=== PATIENT | male | born 1950 | race Caucasian/White ===

== ENCOUNTER 2016-05-10 14:35 | Emergency (ER) | payer OTHER ==
--- NOTE | 2016-05-10 14:52 | ER Document Report ---
ED Medical Screen (RME) - General Stated Complaint: LEFT KNEE PAIN Mode of Arrival: Ambulatory Information source: Patient Notes: Patient complains of left knee pain with some swelling x 4 days. 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 Patient is not on any blood thinning medications although is concerned about DVT this time. I have greeted and performed a rapid initial assessment of this patient. A comprehensive ED assessment and evaluation of the patient, analysis of test results and completion of the medical decision making process will be conducted by additional ED providers. TRAVEL OUTSIDE OF THE [place] IN LAST 30 DAYS: No - Related Data Allergies/Adverse Reactions: No Known Allergies Allergy (Verified 05/10/16 14:50) Past Medical History - Past Medical History Cardiac Medical History: Reports: Hx Hypertension Denies: Hx Coronary Artery Disease, Hx Heart Attack Pulmonary Medical History: Denies: Hx Asthma, Hx Bronchitis, Hx COPD, Hx Pneumonia Neurological Medical History: Denies: Hx Cerebrovascular Accident, Hx Seizures Endocrine Medical History: Reports: Hx Diabetes Mellitus Type 2 Musculoskeltal Medical History: Denies Hx Arthritis - Immunizations Hx Diphtheria, Pertussis, Tetanus Vaccination: Yes Physical Exam - Vital signs Vitals: Temp Pulse Resp BP Pulse Ox 97.9 F 83 18 151/74 H 97 05/10/16 14:41 05/10/16 14:41 05/10/16 14:41 05/10/16 14:41 05/10/16 14:41 - Extremities General lower extremity: Tender - Left lower extremity Course - Vital Signs Vital signs: Temp Pulse Resp BP Pulse Ox 97.9 F 83 18 151/74 H 97 05/10/16 14:41 05/10/16 14:41 05/10/16 14:41 05/10/16 14:41 05/10/16 14:41
[2016-05-10 16:51] LABS: ABSOLUTE BASOPHILS # (AUTO) 0.1 10^3/uL (0.0-0.2); ABSOLUTE EOSINOPHILS # (AUTO) 0.2 10^3/uL (0.0-0.6); ABSOLUTE LYMPHOCYTES (AUTO) 2.7 10^3/uL (0.5-4.7); ABSOLUTE MONOCYTES (AUTO) 0.8 10^3/uL (0.1-1.4); ABSOLUTE NEUT (AUTO) 5.2 10^3/uL (1.7-8.2); BASOPHILS % (AUTO) 0.8 % (0-2); EOSINOPHILS % (AUTO) 2.3 % (0-6); HEMATOCRIT 46.6 % (37.9-51.0); HEMOGLOBIN 15.6 g/dL (13.5-17.0); HGB HCT DIFFERENCE 0.2; LYMPHOCYTES % (AUTO) 29.8 % (13-45); MEAN CORPUSCULAR HEMOGLOBIN 29.7 pg (27.0-33.4); MEAN CORPUSCULAR HGB CONC 33.6 g/dL (32.0-36.0); MEAN CORPUSCULAR VOLUME 88 fl (80-97); MONOCYTES % (AUTO) 8.7 % (3-13); RED BLOOD COUNT 5.27 10^6/uL (4.35-5.55); RED CELL DISTRIBUTION WIDTH 14.4 % (11.5-14.0); SEGMENTED NEUTROPHILS % (AUTO) 58.4 % (42-78); WHITE BLOOD COUNT 8.9 10^3/uL (4.0-10.5)
[2016-05-10 16:56] LABS: PARTIAL THROMBOPLASTIN TIME 25.4 SEC (23.5-35.8)
[2016-05-10 17:06] LABS: ALANINE AMINOTRANSFERASE 32 U/L (21-72); ALBUMIN 3.4 g/dL (3.5-5.0); ALKALINE PHOSPHATASE 107 U/L (38-126); ANION GAP 9 (5-19); ASPARTATE AMINO TRANSFERASE 20 U/L (17-59); BILIRUBIN,TOTAL 0.5 mg/dL (0.2-1.3); BLOOD UREA NITROGEN 19 mg/dL (7-20); CALCIUM 9.1 mg/dL (8.4-10.2); CARBON DIOXIDE 30 mmol/L (22-30); CHLORIDE 103 mmol/L (98-107); CREATININE RESULT 0.93 mg/dL (0.52-1.25); GLUCOSE 96 mg/dL (75-110); POTASSIUM 4.6 mmol/L (3.6-5.0); SODIUM 141.6 mmol/L (137-145); TOTAL PROTEIN 6.7 g/dL (6.3-8.2)
--- NOTE | 2016-05-10 18:34 | ER Document Report ---
ED Extremity Problem, Lower - General Chief Complaint: Leg Swelling Stated Complaint: LEFT KNEE PAIN Mode of Arrival: Ambulatory Information source: Patient TRAVEL OUTSIDE OF THE [place] IN LAST 30 DAYS: No - HPI Patient complains to provider of: Pain Location: Knee - MEDIAL LEFT Occurred: Other - 3 DAYS Where: Home Onset/Duration: Gradual Quality of pain: Burning, Dull Severity: Mild Recent injury: Possibly - ? INSECT OR SPIDER BITE Associated symptoms: denies: Chest pain, Chills, Fever, Painful ambulation, Short of breath, Sweaty, Unable to bear weight, Weak Exacerbated by: Other - PALPATION Relieved by: Nothing - Related Data Allergies/Adverse Reactions: No Known Allergies Allergy (Verified 05/10/16 14:50) Past Medical History - General Information source: Patient - Social History Smoking Status: Unknown if Ever Smoked Chew tobacco use (# tins/day): Yes Frequency of alcohol use: None Drug Abuse: None Lives with: Spouse/Significant other Family History: Reviewed & Not Pertinent Patient has suicidal ideation: No Patient has homicidal ideation: No - Past Medical History Cardiac Medical History: Reports: Hx DVT, Hx Hypertension Denies: Hx Coronary Artery Disease, Hx Heart Attack Pulmonary Medical History: Denies: Hx Asthma, Hx Bronchitis, Hx COPD, Hx Pneumonia Neurological Medical History: Denies: Hx Cerebrovascular Accident, Hx Seizures Endocrine Medical History: Reports: Hx Diabetes Mellitus Type 2 Renal/ Medical History: Denies: Hx Peritoneal Dialysis GI Medical History: Reports: None Musculoskeltal Medical History: Reports None, Denies Hx Arthritis Psychiatric Medical History: Reports: None Surgical Hx: Negative - Immunizations Hx Diphtheria, Pertussis, Tetanus Vaccination: Yes Review of Systems - Review of Systems Constitutional: No symptoms reported. denies: Chills, Fever EENT: No symptoms reported Cardiovascular: No symptoms reported Respiratory: No symptoms reported. denies: Short of breath Gastrointestinal: No symptoms reported Genitourinary: No symptoms reported Musculoskeletal: See HPI Skin: See HPI Neurological/Psychological: No symptoms reported Physical Exam - Vital signs Vitals: Temp Pulse Resp BP Pulse Ox 97.9 F 83 18 151/74 H 97 05/10/16 14:41 05/10/16 14:41 05/10/16 14:41 05/10/16 14:41 05/10/16 14:41 Interpretation: Hypertensive - General General appearance: Appears well, Alert In distress: None - HEENT Head: Normocephalic Eyes: Normal Ears: Normal Nasal: Normal Mouth/Lips: Normal Mucous membranes: Normal - Respiratory Respiratory status: No respiratory distress Breath sounds: Normal - Cardiovascular Rhythm: Regular. No: Tachycardia Heart sounds: Normal auscultation Murmur: No - Abdominal Inspection: Obese - Back Back: Normal - Extremities General upper extremity: Normal inspection General lower extremity: No: Normal inspection - REDNES L. KNEE (SEE "SKIN" BELOW) Knee: Tender - ON MEDIAL SURFACE ONLY. No: Drawer's test instability, Instability, Joint effusion, Laxity with valgus stress, Laxity with varus stress , Pain with ROM, Unable to bear weight - Neurological Neuro grossly intact: Yes Cognition: Normal Orientation: AAOx4 - Psychological Associated symptoms: Normal affect, Normal mood - Skin Skin Temperature: Warm Skin Moisture: Dry Skin Color: Normal Skin Turgor: Elastic Skin irregularity: Erythema - MEDIAL SURFACE L. KNEE, MILDLY RED, TENDER, AND WARM. NO DISCRETE LESION, PUNCTURE, ETC. Course - Vital Signs Vital signs: Temp Pulse Resp BP Pulse Ox 97.9 F 83 18 151/74 H 97 05/10/16 14:41 05/10/16 14:41 05/10/16 14:41 05/10/16 14:41 05/10/16 14:41 - Laboratory Result Diagrams: 05/10/16 16:33 05/10/16 16:33 Laboratory results interpreted by me: 05/10/16 05/10/16 16:33 16:33 RDW 14.4 H Albumin 3.4 L Discharge - Discharge Clinical Impression: Cellulitis Qualifiers: Site of cellulitis: extremity Site of cellulitis of extremity: lower extremity Laterality: left Qualified Code(s): L03.116 - Cellulitis of left lower limb Condition: Stable Disposition: HOME, SELF-CARE Instructions: Cellulitis ([facility]), Clindamycin ([facility]), Elevation & Warmth ([facility]), Ibuprofen (General) ([facility]) Additional Instructions: TAKE CLINDAMYCIN DIRECTED, BEGINNING TONIGHT. KEEP LEFT LEG ELEVATED MUCH POSSIBLE. FOLLOW UP WITH YOUR PRIMARY CARE PROVIDER. RETURN TO E.R. FOR RE-EVALUATION IF YOU GET WORSE IN ANY WAY, ANY TIME. Prescriptions: Clindamycin HCl [Cleocin 150 mg Capsule] 300 mg PO Q6 #56 capsule Ibuprofen [Motrin 800 mg Tablet] 800 mg PO Q8 PRN #20 tablet PRN Reason: For Pain Referrals: REINALDO HUGHES NP [Primary Care Provider] - Follow up as needed
[2016-05-10 19:19] VITALS: BP 136/73
== END 2016-05-10 18:47 | disposition home or self-care (01) ==
LOC: ER 14:35
DX: L03.116 Cellulitis of left lower limb (principal); M79.89 Other specified soft tissue disorders; M25.562 Pain in left knee
CPT/HCPCS: 36415; 80053; 85025; 85610; 85730; 93971; 99284

== ENCOUNTER → 2016-05-25 | Outpatient (CLI) | payer OTHER | LOC: OD 12:32 | PROVIDERS: ATTEND Nurse Practitioner | DX: M25.551 Pain in right hip (principal); G89.29 Other chronic pain; M16.11 Unilateral primary osteoarthritis, right hip | CPT/HCPCS: 72170 ==

== ENCOUNTER 2016-10-21 20:02 | Emergency (ER) | payer MEDICARE, OTHER ==
[2016-10-21] MEDS ORDERED: ASPIRIN 81 MG TABLET, CHEWABLE PO ONE (20:55)
--- NOTE | 2016-10-21 20:56 | ER Document Report ---
ED Cardiac - General TRAVEL OUTSIDE OF THE [place] IN LAST 30 DAYS: No <EFRAIN LINDER - Last Filed: 10/22/16 02:59> <ARNAV ADNRE - Last Filed: 10/22/16 13:28> - General Chief Complaint: Chest Pain Stated Complaint: CHEST PAIN Time Seen by Provider: 10/21/16 20:49 Notes: Patient is a 66-year-old male that comes emergency department for chief complaint of chest pain and shortness of breath, he states yesterday he felt better than today, he had 2 episodes earlier today that lasted for a couple minutes where he had sharp pains in the mid to lower chest on both sides and he states he felt like he was gasping for breath until it resolves. He states if he stands he immediately feels very short of breath and has to lie down again. He denies vomiting, abdominal pain, flank pain, fever, cough, lower extremity swelling. He denies any personal or family history of cardiac disease. Past medical history of hypertension, obesity, former blood clot but is not on a blood thinner. He chews tobacco, denies ever smoking. (EFRAIN LINDER) - Related Data Allergies/Adverse Reactions: No Known Allergies Allergy (Verified 05/10/16 14:50) Home Medications: Current Home Medications No Home Medications 10/22/16 [History] Past Medical History - General Information source: Patient - Social History Smoking Status: Never Smoker Chew tobacco use (# tins/day): Yes Frequency of alcohol use: None Drug Abuse: None Lives with: Family Family History: Reviewed & Not Pertinent Patient has suicidal ideation: No Patient has homicidal ideation: No - Past Medical History Cardiac Medical History: Reports: Hx DVT, Hx Hypertension Denies: Hx Coronary Artery Disease, Hx Heart Attack Pulmonary Medical History: Denies: Hx Asthma, Hx Bronchitis, Hx COPD, Hx Pneumonia Neurological Medical History: Denies: Hx Cerebrovascular Accident, Hx Seizures Endocrine Medical History: Reports: Hx Diabetes Mellitus Type 2 Renal/ Medical History: Denies: Hx Peritoneal Dialysis Musculoskeltal Medical History: Denies Hx Arthritis - Immunizations Hx Diphtheria, Pertussis, Tetanus Vaccination: Yes <EFRAIN LINDER - Last Filed: 10/22/16 02:59> Review of Systems - Review of Systems Constitutional: No symptoms reported EENT: No symptoms reported Cardiovascular: See HPI Respiratory: See HPI Gastrointestinal: No symptoms reported Genitourinary: No symptoms reported Male Genitourinary: No symptoms reported Musculoskeletal: No symptoms reported Skin: No symptoms reported Hematologic/Lymphatic: No symptoms reported Neurological/Psychological: No symptoms reported <EFRAIN LINDER - Last Filed: 10/22/16 02:59> Physical Exam - Vital signs Interpretation: Normal - General General appearance: Other - patient appears mildly uncomfortable - HEENT Head: Normocephalic, Atraumatic Eyes: Normal Pupils: PERRL - Respiratory Respiratory status: No respiratory distress. No: Respiratory distress, Labored Chest status: Nontender Breath sounds: Normal. No: Decreased air movement, Nonproductive cough, Wheezing Chest palpation: Normal - Cardiovascular Rhythm: Regular, Tachycardia Heart sounds: Normal auscultation, S1 appreciated, S2 appreciated Murmur: No - Abdominal Inspection: Normal Distension: No distension Bowel sounds: Normal Tenderness: Nontender. No: Tender, Matute's sign, Guarding Organomegaly: No organomegaly - Back Back: Normal, Nontender - Extremities General upper extremity: Normal inspection, Nontender, Normal color, Normal ROM , Normal temperature General lower extremity: Other - Mild lower extremity discoloration, no overt erythema or abnormal heat, no overt edema, distal neurovascular exam intact. - Neurological Neuro grossly intact: Yes Cognition: Normal Orientation: AAOx4 Ronaldo Coma Scale Eye Opening: Spontaneous Rawlings Coma Scale Verbal: Oriented Ronaldo Coma Scale Motor: Obeys Commands Rawlings Coma Scale Total: 15 Speech: Normal Motor strength normal: LUE, RUE, LLE, RLE Sensory: Normal - Psychological Associated symptoms: Normal affect, Normal mood - Skin Skin Temperature: Warm Skin Moisture: Dry Skin Color: Normal <EFRAIN LINDER - Last Filed: 10/22/16 02:59> Course - Laboratory Result Diagrams: 10/21/16 21:18 10/21/16 21:18 <EFRAIN LINDER - Last Filed: 10/22/16 02:59> - Laboratory Result Diagrams: 10/21/16 21:18 10/22/16 08:58 <ARNAV ANDRE - Last Filed: 10/22/16 13:28> - Re-evaluation Re-evalutation: Patient tachycardic, reporting chest pain, appears mildly uncomfortable. Concern for pulmonary embolism. CBC shows mild leukocytosis which is nonspecific, chemistry unremarkable, troponin is elevated at 0.14. EKG showing sinus tachycardia, possible S1Q3T3. CTA was performed, shows massive pulmonary emboli both proximally and distally. Ordering heparin drip. 10/21/16 22:[address] Holguin, Construction Coordinator at [facility]. He states that there is not good data indicating TPA will help this patient, at at the age of 66 the risk of intracranial is about double, recommends that he does not usually perform or recommend this unless patient strongly prefers the medication. Recommends heparin drip at this time. I did discuss with patient and his son at length and in detail. After discussion the decision was made to avoid TPA at this time with normal blood pressure and maintaining good oxygenation on nasal cannula. Patient and son state agreement and preference of this course. 22:[address] Liu and Dr. Szymanski, recommend transfer because of lack of ICU beds in addition to lack of interventional therapy for massive PE with signs of right heart strain. 22:[address] Holguin again, recommends I speak to hospitalist. Spoke with Dr. Thomas, they will accept patient for transfer. Patient and son state agreement with this plan of action. 10/22/16 02:59 Patient is resting comfortably on the new hospital bed provided for him because of being informed of bed delay to [facility]. He denies any current symptoms, maintaining good blood pressure and oxygenation on nc. (EFRAIN LINDER) 10/22/16 07:38 pt care transferred to [place] at the bedise, vitals stable, no complaints of pain, oxygen on 4 lpm 95% pulse ox. Pt daily meds and breakfast ordered. Will call [facility] transfer center re: bed status, and also [facility] hospitalist's to re evaluate as to whether the pt can stay at [facility] on heparin drip. 10/22/16 08:23 call to [facility] about bed status. may be late this evening, may not get today according to them at this time. Consult Dr. Brody for reevaluation Wednesday at [facility] and she recommended getting a stat echocardiogram to check for right heart strain, repeat the troponin and basic metabolic panel. She also wants a temperature recorded in the computer. 10/22/16 08:34 10/22/16 11:[address] brody again concerning the right ventricular,thrombus, she is calling [facility] to see if they would change their mind about IC TPA in light of this new data. pt vitals OK, family at bedside. 10/22/16 12:27 Dr. Brody spoke with Dr. Maldonado who is a cardiac surgeon who will accept the patient to cardiac CV ICU room 219 for the intracardiac intervention for the right ventricular clot. They are sending helicopter to be flown to [facility]. Dr. Rick Aware and will sign the new emtala form. 10/22/16 12:42 pt signed new emtala for transfer with the new information. Dr. rick will see the pt prior to leaving via air [facility] 10/22/16 13:27 pt on stretcher for air transport, extra copy of CD given to the family. Vitals stable. repeat ptt 73. 10/22/16 13:28 (ARNAV ANDRE) - Vital Signs Vital signs: Temp Pulse Resp BP Pulse Ox 97.6 F 72 18 128/61 H 95 10/22/16 12:30 10/22/16 12:30 10/22/16 12:30 10/22/16 12:30 10/22/16 12:30 - Laboratory Laboratory results interpreted by me: 10/21/16 10/21/16 10/22/16 21:18 21:18 05:14 WBC 13.4 H RDW 14.3 H Seg Neutrophils % 78.6 H Absolute Neutrophils 10.6 H APTT 121.4 H D Carbon Dioxide 21 L BUN 21 H Glucose 203 H Alkaline Phosphatase 138 H Creatine Kinase 42 L 10/22/16 10/22/16 08:58 12:07 WBC RDW Seg Neutrophils % Absolute Neutrophils APTT 73.8 H Carbon Dioxide BUN Glucose 140 H Alkaline Phosphatase 128 H Creatine Kinase Critical Care Note - Critical Care Note Total time excluding time spent on procedures (mins): 40 - pulmonary emboli, elevated troponin, hypoxia, tachycardia <EFRAIN LINDER - Last Filed: 10/22/16 02:59> <ARANV ANDRE - Last Filed: 10/22/16 13:28> - Critical Care Note Comments: Please allow 40 minutes of critical care time for evaluation and treatment of patient with massive pulmonary emboli requiring mulitple re-evaluations, consultation with interist and multiple hospitalists. Treatment with oxygen and heparin drip. Discussion of treatment options with patient and family. Transfer to tertiary facility. (EFRAIN LINDER) Discharge <EFRAIN LINDER - Last Filed: 10/22/16 02:59> <ARNAV ANDRE - Last Filed: 10/22/16 13:28> - Discharge Clinical Impression: Shortness of breath Chest pain Qualifiers: Chest pain type: unspecified Qualified Code(s): R07.9 - Chest pain, unspecified Pulmonary emboli Qualifiers: Pulmonary embolism type: other Chronicity: acute Acute cor pulmonale presence: with acute cor pulmonale Qualified Code(s): I26.09 - Other pulmonary embolism with acute cor pulmonale Condition: Fair Disposition: [facility] Referrals: REINALDO HUGHES NP [Primary Care Provider] - Follow up as needed
--- NOTE | 2016-10-21 21:12 | RADIOLOGY REPORT (SQ) ---
EXAM DESCRIPTION: CHEST SINGLE VIEW COMPLETED DATE/TIME: 10/21/2016 9:02 pm REASON FOR STUDY: chest pain, shortness of breath COMPARISON: None. EXAM PARAMETERS: NUMBER OF VIEWS: One view. TECHNIQUE: Single frontal radiographic view of the chest acquired. RADIATION DOSE: NA LIMITATIONS: None. FINDINGS: LUNGS AND PLEURA: No opacities, masses or pneumothorax. No pleural effusion. MEDIASTINUM AND HILAR STRUCTURES: No masses. Contour normal. HEART AND VASCULAR STRUCTURES: Heart normal in size. Normal vasculature. BONES: No acute findings. HARDWARE: None in the chest. OTHER: No other significant finding. IMPRESSION: NO ACUTE RADIOGRAPHIC FINDING IN THE CHEST. TECHNICAL DOCUMENTATION: JOB ID: [id number]
[2016-10-21 21:34] LABS: ABSOLUTE BASOPHILS # (AUTO) 0.1 10^3/uL (0.0-0.2); ABSOLUTE EOSINOPHILS # (AUTO) 0.1 10^3/uL (0.0-0.6); ABSOLUTE LYMPHOCYTES (AUTO) 1.9 10^3/uL (0.5-4.7); ABSOLUTE MONOCYTES (AUTO) 0.8 10^3/uL (0.1-1.4); ABSOLUTE NEUT (AUTO) 10.6 10^3/uL (1.7-8.2); BASOPHILS % (AUTO) 0.7 % (0-2); EOSINOPHILS % (AUTO) 0.8 % (0-6); HEMATOCRIT 48.2 % (37.9-51.0); HGB HCT DIFFERENCE -0.2; MEAN CORPUSCULAR HEMOGLOBIN 29.6 pg (27.0-33.4); MEAN CORPUSCULAR HGB CONC 33.1 g/dL (32.0-36.0); MEAN CORPUSCULAR VOLUME 90 fl (80-97); MONOCYTES % (AUTO) 5.9 % (3-13); RED BLOOD COUNT 5.39 10^6/uL (4.35-5.55); RED CELL DISTRIBUTION WIDTH 14.3 % (11.5-14.0); SEGMENTED NEUTROPHILS % (AUTO) 78.6 % (42-78); WHITE BLOOD COUNT 13.4 10^3/uL (4.0-10.5)
[2016-10-21 21:53] LABS: ALANINE AMINOTRANSFERASE 40 U/L (21-72); ALKALINE PHOSPHATASE 138 U/L (38-126); ANION GAP 16 (5-19); ASPARTATE AMINO TRANSFERASE 28 U/L (17-59); BILIRUBIN,DIRECT 0.4 mg/dL (0.0-0.4); BILIRUBIN,TOTAL 0.9 mg/dL (0.2-1.3); BLOOD UREA NITROGEN 21 mg/dL (7-20); CALCIUM 8.9 mg/dL (8.4-10.2); CARBON DIOXIDE 21 mmol/L (22-30); CHLORIDE 102 mmol/L (98-107); CREATINE KINASE 42 U/L (55-170); CREATININE RESULT 1.05 mg/dL (0.52-1.25); GLUCOSE 203 mg/dL (75-110); LIPASE 54.5 U/L (23-300); POTASSIUM 4.4 mmol/L (3.6-5.0); SODIUM 138.9 mmol/L (137-145); TOTAL PROTEIN 7.1 g/dL (6.3-8.2)
--- NOTE | 2016-10-21 22:31 | RADIOLOGY REPORT (SQ) ---
EXAM DESCRIPTION: CTA CHEST COMPLETED DATE/TIME: 10/21/2016 10:19 pm REASON FOR STUDY: chest pain, SOB, tachycardia, hx of blood clot COMPARISON: None. TECHNIQUE: CT scan of the chest performed using helical scanning technique with dynamic intravenous contrast injection. Images reviewed with lung, soft tissue and bone windows. Reconstructed coronal and sagittal MPR images reviewed. Additional 3 dimensional post-processing performed to develop Maximal Intensity Projection images (IL P). All images stored on PACS. All CT scanners at this facility use dose modulation, iterative reconstruction, and/or weight based d osing when appropriate to reduce radiation dose to as low as reasonably achievable (ALARA). [facility]: Dose Right [facility]: CareDose [facility]: Dose Right [facility]: Teradose 4D [facility]: Planning Media CONTRAST TYPE AND DOSE: contrast/concentration: Isovue 370.00 mg/ml; Total Contrast Delivered: 86.0 ml; Total Saline Delivered: 55.0 ml RENAL FUNCTION: Creatinine 1.05 RADIATION DOSE: Up-to-date CT equipment and radiation dose reduction techniques were employed. CTDIv ol: 33.7 mGy. DLP: 1214 mGy-cm. . LIMITATIONS: None. FINDINGS: LUNGS AND PLEURA: No masses, infiltrates, pneumothorax. No pleural effusions, calcificati ons. AORTA AND GREAT VESSELS: No aneurysm or dissection. HEART: No pericardial effusion. PULMONARY ARTERIES: Massive bilateral proximal and distal pulmonary emboli. HILAR AND MEDIASTINAL STRUCTURES: No identified masses or abnormal nodes. HARDWARE: None in the chest. UPPER ABDOMEN: Large hepatic cysts. THYROID AND OTHER SOFT TISSUES: No masses. No adenopathy. BONES: No acute or significant finding. 3D MIPS: Confirm above findings. OTHER: No other significant finding. IMPRESSION: Massive proximal and distal pulmonary emboli. COMMENT: Pertinent findings on the imaging study reported as a CRITICAL RESULT to EFRAIN MCCARTHY at 22:24 on 10/21/2016. Category of Critical Result: Pulmonary emboli. TECHNICAL DOCUMENTATION: JOB ID: [id number] Quality ID # [id number]: Final reports with documentation of one or more dose reduction techniques (e.g., Au tomated exposure control, adjustment of the mA and/or kV according to patient size, use of iterative reconstruction technique) 2010 [employer]- All Rights Reserved
[2016-10-21 22:33] LABS: PARTIAL THROMBOPLASTIN TIME 29.6 SEC (23.5-35.8); PROTHROMBIN TIME 14.2 SEC (11.4-15.4)
[2016-10-21] MEDS ORDERED: HEPARIN SODIUM,PORCINE/D5W 250 ML IV PRN (22:39)
[2016-10-21] MEDS ORDERED: HEPARIN SOD (PORCINE) 1,000 UNIT/ML 10 ML VIAL IV PRN (22:39)
[2016-10-21] MEDS ORDERED: HEPARIN SOD (PORCINE) 1,000 UNIT/ML 10 ML VIAL IV ONE (22:39)
[2016-10-22 05:34] LABS: PROTHROMBIN TIME 15.2 SEC (11.4-15.4)
[2016-10-22 05:49] LABS: PARTIAL THROMBOPLASTIN TIME 121.4 SEC (23.5-35.8)
[2016-10-22] MEDS ORDERED: HYDROCHLOROTHIAZIDE 25 MG TABLET PO ONE (07:07)
[2016-10-22] MEDS ORDERED: ATORVASTATIN CALCIUM 40 MG TABLET PO ONE (07:08)
[2016-10-22] MEDS ORDERED: LISINOPRIL 10 MG TABLET PO ONE (07:18)
--- NOTE | 2016-10-22 08:13 | EKG REPORT ---
SEVERITY:- ABNORMAL ECG - SINUS TACHYCARDIA INFERIOR INFARCT, AGE INDETERMINATE : Confirmed by: Solo Zhang MD 22-Oct-2016 08:12:33
[2016-10-22] MEDS ORDERED: METFORMIN HCL 500 MG TABLET PO SCH (10:00)
[2016-10-22 10:05] LABS: ALANINE AMINOTRANSFERASE 32 U/L (21-72); ALBUMIN 3.6 g/dL (3.5-5.0); ALKALINE PHOSPHATASE 128 U/L (38-126); ANION GAP 12 (5-19); ASPARTATE AMINO TRANSFERASE 23 U/L (17-59); BILIRUBIN,DIRECT 0.3 mg/dL (0.0-0.4); BLOOD UREA NITROGEN 19 mg/dL (7-20); CALCIUM 8.8 mg/dL (8.4-10.2); CARBON DIOXIDE 23 mmol/L (22-30); CHLORIDE 105 mmol/L (98-107); CREATININE RESULT 0.88 mg/dL (0.52-1.25); GLUCOSE 140 mg/dL (75-110); POTASSIUM 4.3 mmol/L (3.6-5.0); SODIUM 139.5 mmol/L (137-145); TOTAL PROTEIN 6.7 g/dL (6.3-8.2)
--- NOTE | 2016-10-22 11:04 | XCELERA REPORT ---
[address] [address] Transthoracic Echocardiogram Report Name: JACOB MATTA Age: 66 yrs Gender: Male : 1950 Patient Status: Emergency Patient Location: ER Study Date: 10/22/2016 08:59 AM Height: 73 in Weight: 326 lb BSA: 2.6 m2 Procedure: A complete two-dimensional transthoracic echocardiogram was performed (2D, M-mode, spectral and color flow Doppler). The study was technically difficult with many images being suboptimal in quality. Reason For Study: eval for right ventricular strain, due to PE Ordering Physician: ARNAV ANDRE Performed By: Ren Ramos Interpretation Summary Small Mobile echodensity noted in RV most consistent with thrombus. Left ventricular systolic function is low normal. There is mild concentric left ventricular hypertrophy. The left ventricle is grossly normal size. Doppler measurements suggest impaired left ventricular relaxation, which is associated with grade I/IV or mild diastolic dysfunction Wall motion cannot be accurately commented on, but no definite regional wall motion abnormalities noted. The right ventricle is moderately dilated. The right ventricle appears to be hypertrophied The right ventricular systolic function is mildly reduced. The right atrium is mild to moderately dilated. The left atrial size is normal. Interarterial septum not well visualized and not well dopplered. Cannot comment on ASD/PFO presence. There is no mitral valve stenosis. There is a mild amount of mitral regurgitation There is no aortic valve stenosis No aortic regurgitation is present. There is a trace to mild amount of tricuspid regurgitation There is mild pulmonary hypertension by echo Right ventricular systolic pressure is estimated to be elevated at 30- 40mmHg. The aortic root is not well visualized but is probably normal size. The inferior vena cava appeared dilated and decreased < 50% with respiration (RAP 15-20 mmHg) There is no pericardial effusion. MMode/2D Measurements \T\ Calculations RVDd: 3.4 cm LVIDd: 4.7 cm FS: 23.8 % Ao root diam: 3.5 cm IVSd: 1.6 cm LVIDs: 3.6 cm EDV(Teich): 103.2 ml LVPWd: 1.6 cm ESV(Teich): 54.3 ml Ao root area: 9.8 cm2 EF(Teich): 47.4 % LA dimension: 3.5 cm Doppler Measurements \T\ Calculations MV E max terra: MV P1/2t max terra: Ao V2 max: LV V1 max P.3 cm/sec 55.4 cm/sec 135.1 cm/sec 4.9 mmHg MV A max terra: MV P1/2t: 48.9 msec Ao max PG: LV V1 max: 84.9 cm/sec 7.3 mmHg 110.6 cm/sec MV E/A: 0.70 MVA(P1/2t): 4.5 cm2 MV dec slope: 332.3 cm/sec2 PA V2 max: TR max terra: RAP systole: 64.2 cm/sec 229.9 cm/sec 10.0 mmHg PA max PG: TR max P.4 mmHg 1.6 mmHg RVSP(TR): 31.4 mmHg Left Ventricle The left ventricle is grossly normal size. There is mild concentric left ventricular hypertrophy. Left ventricular systolic function is low normal. Doppler measurements suggest impaired left ventricular relaxation, which is associated with grade I/IV or mild diastolic dysfunction. Wall motion cannot be accurately commented on, but no definite regional wall motion abnormalities noted. Right Ventricle The right ventricle is moderately dilated. The right ventricle appears to be hypertrophied. The right ventricular systolic function is mildly reduced. Atria The right atrium is mild to moderately dilated. The left atrial size is normal. Interarterial septum not well visualized and not well dopplered. Cannot comment on ASD/PFO presence. Mitral Valve The mitral valve is grossly normal. There is no mitral valve stenosis. There is a mild amount of mitral regurgitation. Aortic Valve The aortic valve is grossly normal. There is no aortic valve stenosis. No aortic regurgitation is present. Tricuspid Valve The tricuspid valve is not well visualized, but is grossly normal. There is no tricuspid stenosis. There is a trace to mild amount of tricuspid regurgitation. There is mild pulmonary hypertension by echo. Right ventricular systolic pressure is estimated to be elevated at 30-40mmHg. Pulmonic Valve The pulmonic valve is not well visualized. Great Vessels The aortic root is not well visualized but is probably normal size. The inferior vena cava appeared dilated and decreased < 50% with respiration (RAP 15-20 mmHg). Effusions There is no pericardial effusion. Incidental Findings Small Mobile echodensity noted in RV most consistent with thrombus. : ARNAV ANDRE > Deven Haines
[2016-10-22] MEDS ORDERED: NORMAL SALINE 1000 ML 1,000 ML IV ONE ×2 (11:53→11:57)
--- NOTE | 2016-10-22 12:30 | Progress Note ---
Provider Note Provider Note: Spoke with SOFYA Hurley. Upon review of patient case felt he would be better served with catheter directed lysis. Discussed case with Dr. Maldonado of [facility] who agreed to accept patient to cardiac ICU. I did not phyiscally evaluate this patient and only facilitated his transfer to a larger center for ongoing care. Agree with heparin ggt while waiting.
[2016-10-22 13:40] VITALS: BP 125/89
== END 2016-10-22 13:32 | disposition short-term general hospital (02) ==
LOC: ER 20:02
DX: I26.09 Other pulmonary embolism with acute cor pulmonale (principal); R74.8 Abnormal levels of other serum enzymes; R09.02 Hypoxemia; R07.9 Chest pain, unspecified; D72.829 Elevated white blood cell count, unspecified; R06.02 Shortness of breath; R00.0 Tachycardia, unspecified; I10 Essential (primary) hypertension; E11.9 Type 2 diabetes mellitus without complications; Z72.0 Tobacco use; Z86.718 Personal history of other venous thrombosis and embolism
CPT/HCPCS: 93005; 99291; 96374; 36415; 82550; 83690; 85025; 85610; 85730; 80053; 84484; 93306; 71010; 71275; 93010; J1644 ×2; A9270 ×2; J7030

== ENCOUNTER 2017-12-01 16:02 | Inpatient (IN) | payer MEDICARE ==
[2017-12-01] MEDS ORDERED: PIPERACILLIN/TAZOBACTAM 3.375 GM VIAL IV ONE ×2 (16:34→17:32)
[2017-12-01] MEDS ORDERED: VANCOMYCIN HCL INJ 1000 MG VIAL IV ONE ×2 (16:34→18:52)
--- NOTE | 2017-12-01 16:35 | ER Document Report ---
ED Medical Screen (RME) - General Chief Complaint: Puncture Wound Stated Complaint: LEFT LOWER LEG PUNCTURE WOUND Time Seen by Provider: 12/01/17 16:20 Mode of Arrival: Ambulatory Information source: Patient Notes: Patient presents with a 2 day history of left lower extremity puncture wound. He said that the wound has been getting worse. He is also on a blood thinner. Patient has diabetes and he is on the Metformin. I have greeted and performed a rapid initial assessment of this patient. A comprehensive ED assessment and evaluation of the patient, analysis of test results and completion of the medical decision making process will be conducted by additional ED providers. TRAVEL OUTSIDE OF THE [place] IN LAST 30 DAYS: No - Related Data Allergies/Adverse Reactions: No Known Allergies Allergy (Verified 12/01/17 16:05) Past Medical History - Social History Frequency of alcohol use: None Drug Abuse: None - Past Medical History Cardiac Medical History: Reports: Hx DVT, Hx Hypertension Denies: Hx Coronary Artery Disease, Hx Heart Attack Pulmonary Medical History: Denies: Hx Asthma, Hx Bronchitis, Hx COPD, Hx Pneumonia Neurological Medical History: Denies: Hx Cerebrovascular Accident, Hx Seizures Endocrine Medical History: Reports: Hx Diabetes Mellitus Type 2 Renal/ Medical History: Denies: Hx Peritoneal Dialysis Musculoskeltal Medical History: Denies Hx Arthritis - Immunizations Hx Diphtheria, Pertussis, Tetanus Vaccination: Yes Physical Exam - Vital signs Vitals: Temp Pulse Resp BP Pulse Ox 98.1 F 103 H 18 172/87 H 97 12/01/17 16:09 12/01/17 16:09 12/01/17 16:12/01/17 16:09 12/01/17 16:09 Course - Vital Signs Vital signs: Temp Pulse Resp BP Pulse Ox 98.1 F 103 H 18 172/87 H 97 12/01/17 16:09 12/01/17 16:09 12/01/17 16:12/01/17 16:12/01/17 16:09 Doctor's Discharge - Discharge Referrals: REINALDO HUGHES NP [Primary Care Provider] - Follow up as needed
[2017-12-01 17:20] LABS: ABSOLUTE BASOPHILS # (AUTO) 0.1 10^3/uL (0.0-0.2); ABSOLUTE EOSINOPHILS # (AUTO) 0.1 10^3/uL (0.0-0.6); ABSOLUTE LYMPHOCYTES (AUTO) 3.1 10^3/uL (0.5-4.7); ABSOLUTE MONOCYTES (AUTO) 0.8 10^3/uL (0.1-1.4); BASOPHILS % (AUTO) 0.7 % (0-2); EOSINOPHILS % (AUTO) 0.8 % (0-6); HEMOGLOBIN 15.3 g/dL (13.5-17.0); LYMPHOCYTES % (AUTO) 27.8 % (13-45); MEAN CORPUSCULAR HEMOGLOBIN 29.6 pg (27.0-33.4); MEAN CORPUSCULAR HGB CONC 33.3 g/dL (32.0-36.0); MEAN CORPUSCULAR VOLUME 89 fl (80-97); MONOCYTES % (AUTO) 7.3 % (3-13); PLATELET COUNT 219 10^3/uL (150-450); RED BLOOD COUNT 5.17 10^6/uL (4.35-5.55); RED CELL DISTRIBUTION WIDTH 14.3 % (11.5-14.0); SEGMENTED NEUTROPHILS % (AUTO) 63.4 % (42-78); TOTAL CELLS COUNTED % (AUTO) 100 %
[2017-12-01 17:32] LABS: INTERNATIONAL RATION (INR) 1.57; PARTIAL THROMBOPLASTIN TIME 27.2 SEC (23.5-35.8); PROTHROMBIN TIME 19.6 SEC (11.4-15.4)
[2017-12-01 17:37] LABS: ALANINE AMINOTRANSFERASE 23 U/L (21-72); ALKALINE PHOSPHATASE 104 U/L (38-126); ANION GAP 10 (5-19); ASPARTATE AMINO TRANSFERASE 17 U/L (17-59); BILIRUBIN,DIRECT 0.3 mg/dL (0.0-0.4); BILIRUBIN,TOTAL 0.7 mg/dL (0.2-1.3); BLOOD UREA NITROGEN 21 mg/dL (7-20); CALCIUM 8.8 mg/dL (8.4-10.2); CARBON DIOXIDE 26 mmol/L (22-30); CHLORIDE 106 mmol/L (98-107); GLUCOSE 114 mg/dL (75-110); POTASSIUM 4.4 mmol/L (3.6-5.0); SODIUM 142.2 mmol/L (137-145); TOTAL PROTEIN 7.3 g/dL (6.3-8.2)
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
[2017-12-01] MEDS ORDERED: KETOROLAC TROMETHAMINE INJ/PF 30 MG/1 ML SDV IV PRN (19:44)
[2017-12-01] MEDS ORDERED: HYDRALAZINE HCL INJ/PF 20 MG/1 ML SDV IV PRN (19:44)
[2017-12-01] MEDS ORDERED: MAG HYDROX/AL HYDROX/SIMETH SUSP 30 ML UDCUP PO PRN (21:12)
[2017-12-01] MEDS ORDERED: ACETAMINOPHEN 325 MG TABLET PO PRN (21:12)
[2017-12-01] MEDS ORDERED: MAGNESIUM HYDROXIDE SUSP 30 ML UDCUP PO PRN (21:12)
[2017-12-01] MEDS ORDERED: WARFARIN SODIUM 4 MG TABLET PO SCH ×2 (22:00)
[2017-12-01] MEDS ORDERED: (PENDING PHARMACY ID) (Lisinopril [Prinivil 2.5 Mg Tablet] 2.5 MG) PO SCH (22:00)
[2017-12-01 23:04] LABS: AMORPHOUS SEDIMENT,URINE TRACE /HPF; BILIRUBIN,URINE NEGATIVE (NEGATIVE); COLOR,URINE YELLOW; GLUCOSE, URINE NEGATIVE (NEGATIVE); KETONES,URINE NEGATIVE (NEGATIVE); LEUKOCYTE ESTERASE,URINE NEGATIVE (NEGATIVE); NITRITE,URINE NEGATIVE (NEGATIVE); PROTEIN,URINE NEGATIVE (NEGATIVE); URINE SPECIFIC GRAVITY 1.026; UROBILINOGEN,URINE NEGATIVE mg/dL (<2.0)
[2017-12-01 23:05] LABS: APPEARANCE,URINE CLOUDY
[2017-12-01] MEDS: HEPARIN SOD (PORCINE) 5,000 UNIT/ML 1 ML SYRINGE SUBCUT SCH (23:16)
[2017-12-01] MEDS: WARFARIN SODIUM 5 MG TABLET PO SCH (23:16)
[2017-12-01] MEDS: LISINOPRIL 5 MG TABLET PO SCH (23:17)
[2017-12-02] MEDS ORDERED: DEXTROSE 50%-WATER 25 GM/50 ML DISP.SYRIN IV PRN ×2 (00:21)
[2017-12-02] MEDS ORDERED: GLUCAGON,HUMAN RECOMB 1 MG INJ IM PRN (00:21)
[2017-12-02] MEDS ORDERED: INSULIN LISPRO 100 UNIT/ML 3 ML VIAL SUBCUT PRN (00:21)
[2017-12-02] MEDS ORDERED: DEXTROSE 40% GEL 15 GM TUBE PO PRN ×2 (00:21)
[2017-12-02] MEDS: HEPARIN SOD (PORCINE) 5,000 UNIT/ML 1 ML SYRINGE SUBCUT SCH ×3 (05:52→22:33)
[2017-12-02 06:32] LABS: ABSOLUTE BASOPHILS # (AUTO) 0.1 10^3/uL (0.0-0.2); ABSOLUTE EOSINOPHILS # (AUTO) 0.2 10^3/uL (0.0-0.6); ABSOLUTE LYMPHOCYTES (AUTO) 2.8 10^3/uL (0.5-4.7); ABSOLUTE MONOCYTES (AUTO) 0.7 10^3/uL (0.1-1.4); ABSOLUTE NEUT (AUTO) 4.9 10^3/uL (1.7-8.2); BASOPHILS % (AUTO) 0.9 % (0-2); HEMATOCRIT 41.4 % (37.9-51.0); HEMOGLOBIN 14.1 g/dL (13.5-17.0); LYMPHOCYTES % (AUTO) 32.9 % (13-45); MEAN CORPUSCULAR HGB CONC 34.1 g/dL (32.0-36.0); MEAN CORPUSCULAR VOLUME 88 fl (80-97); PLATELET COUNT 187 10^3/uL (150-450); RED BLOOD COUNT 4.71 10^6/uL (4.35-5.55); RED CELL DISTRIBUTION WIDTH 14.5 % (11.5-14.0); SEGMENTED NEUTROPHILS % (AUTO) 56.2 % (42-78); TOTAL CELLS COUNTED % (AUTO) 100 %; WHITE BLOOD COUNT 8.6 10^3/uL (4.0-10.5)
[2017-12-02 06:49] LABS: INTERNATIONAL RATION (INR) 1.52; PROTHROMBIN TIME 19.1 SEC (11.4-15.4)
[2017-12-02 06:53] LABS: ANION GAP 6 (5-19); BLOOD UREA NITROGEN 20 mg/dL (7-20); CALCIUM 8.5 mg/dL (8.4-10.2); CARBON DIOXIDE 27 mmol/L (22-30); CHLORIDE 107 mmol/L (98-107); GLUCOSE 108 mg/dL (75-110); POTASSIUM 4.2 mmol/L (3.6-5.0); SODIUM 140.3 mmol/L (137-145)
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
[2017-12-02] MEDS ORDERED: VANCOMYCIN HCL 0 MG in DEXTROSE 5%-WATER 250 ML IV NR (08:30)
[2017-12-02] MEDS ORDERED: PIPERACILLIN SODIUM/TAZOBACTAM 4.5 GM in NORMAL SALINE 100 ML IV SCH (09:00)
--- NOTE | 2017-12-02 09:37 | PDOC PROGRESS REPORT ---
Subjective Progress Note for:: 12/02/17 Subjective:: 67-year-old white male with left lower extremity cellulitis. Pain decreased afebrile white count normalizing. INR 1.5 to on increased dose of Coumadin Reason For Visit: CELLULITIS DIABETES Physical Exam Vital Signs: Temp Pulse Resp BP Pulse Ox 98.2 F 64 15 110/59 L 94 12/02/17 07:24 12/02/17 07:24 12/02/17 07:24 12/02/17 07:24 12/02/17 07:24 Intake & Output 12/01/17 12/02/17 12/03/17 06:59 06:59 06:59 Weight 148.4 kg 148.4 kg General appearance: PRESENT: no acute distress, well-developed, well-nourished Head exam: PRESENT: atraumatic, normocephalic Eye exam: PRESENT: conjunctival injection, EOMI Neck exam: ABSENT: carotid bruit, JVD, lymphadenopathy, thyromegaly Respiratory exam: PRESENT: clear to auscultation aniket. ABSENT: rales, rhonchi, wheezes Cardiovascular exam: PRESENT: RRR. ABSENT: diastolic murmur, rubs, systolic murmur Vascular exam: PRESENT: normal capillary refill, pallor GI/Abdominal exam: PRESENT: normal bowel sounds, soft. ABSENT: distended, guarding, mass, organolmegaly, rebound, tenderness Extremities exam: PRESENT: +1 edema. ABSENT: calf tenderness Skin exam: PRESENT: other Results Laboratory Results: 12/02/17 05:33 12/02/17 05:33 12/01/17 12/01/17 12/02/17 21:07 21:16 05:33 WBC 8.6 RBC 4.71 Hgb 14.1 Hct 41.4 MCV 88 MCH 30.0 MCHC 34.1 RDW 14.5 H Plt Count 187 Seg Neutrophils % 56.2 Lymphocytes % 32.9 Monocytes % 8.0 Eosinophils % 2.0 Basophils % 0.9 Absolute Neutrophils 4.9 Absolute Lymphocytes 2.8 Absolute Monocytes 0.7 Absolute Eosinophils 0.2 Absolute Basophils 0.1 Sodium Potassium Chloride Carbon Dioxide Anion Gap BUN Creatinine Est GFR ( Amer) Est GFR (Non-Af Amer) Glucose Lactic Acid 2.5 H Calcium Urine Color YELLOW Urine Appearance CLOUDY Urine pH 5.0 Ur Specific [place] 1.026 Urine Protein NEGATIVE Urine Glucose (UA) NEGATIVE Urine Ketones NEGATIVE Urine Blood NEGATIVE Urine Nitrite NEGATIVE Ur Leukocyte Esterase NEGATIVE Urine WBC (Auto) 15 Urine RBC (Auto) 2 12/02/17 05:33 WBC RBC Hgb Hct MCV MCH MCHC RDW Plt Count Seg Neutrophils % Lymphocytes % Monocytes % Eosinophils % Basophils % Absolute Neutrophils Absolute Lymphocytes Absolute Monocytes Absolute Eosinophils Absolute Basophils Sodium 140.3 Potassium 4.2 Chloride 107 Carbon Dioxide 27 Anion Gap 6 BUN 20 Creatinine 0.83 Est GFR ( Amer) > 60 Est GFR (Non-Af Amer) > 60 Glucose 108 Lactic Acid Calcium 8.5 Urine Color Urine Appearance Urine pH Ur Specific [place] Urine Protein Urine Glucose (UA) Urine Ketones Urine Blood Urine Nitrite Ur Leukocyte Esterase Urine WBC (Auto) Urine RBC (Auto) Assessment & Plan - Diagnosis (1) Left leg cellulitis Is this a current diagnosis for this admission?: Yes Plan: Continue vancomycin and Zosyn for 48-72 hours transition to p.o. antibiotics planned treatment 10-14 days (2) Sepsis Qualifiers: Sepsis type: sepsis due to unspecified organism Qualified Code(s): A41.9 - Sepsis, unspecified organism Is this a current diagnosis for this admission?: Yes Plan: Resolved (3) Diabetes Qualifiers: Diabetes mellitus type: type 2 Diabetes mellitus care home insulin use: without care home use Diabetes mellitus complication status: without complication Qualified Code(s): E11.9 - Type 2 diabetes mellitus without complications Is this a current diagnosis for this admission?: Yes Plan: Patient on metformin at home hemoglobin A1c 6.4 indicating good glycemic control. Continue sliding scale for the present. (4) Chronic anticoagulation Is this a current diagnosis for this admission?: Yes Plan: Continue Coumadin 10 mg nightly. INR daily until patient achieves goal of 2-3. Continue subcutaneous heparin until patient is therapeutically anticoagulated (5) Morbid obesity with BMI of 40.0-44.9, adult Is this a current diagnosis for this admission?: Yes Plan: Weight reduction stressed. - Time Time Spent with patient: 35 or more minutes Anticipated discharge: Home Within: within 48 hours
[2017-12-02] MEDS: METFORMIN HCL 500 MG TABLET PO SCH ×2 (10:43→16:39)
[2017-12-02] MEDS: PIPERACILLIN SODIUM/TAZOBACTAM 2.25 GM in NORMAL SALINE 50 ML IV SCH ×2 (10:43→17:52)
[2017-12-02] MEDS: DOCUSATE SODIUM 100 MG CAPSULE PO SCH ×2 (10:43→17:52)
[2017-12-02] MEDS: VANCOMYCIN HCL 1,000 MG in DEXTROSE 5%-WATER 250 ML IV SCH ×2 (14:32→22:34)
[2017-12-02] MEDS: WARFARIN SODIUM 5 MG TABLET PO SCH (22:32)
[2017-12-02] MEDS: LISINOPRIL 5 MG TABLET PO SCH (22:33)
[2017-12-03] MEDS: PIPERACILLIN SODIUM/TAZOBACTAM 2.25 GM in NORMAL SALINE 50 ML IV SCH ×3 (02:53→17:07)
[2017-12-03] MEDS: HEPARIN SOD (PORCINE) 5,000 UNIT/ML 1 ML SYRINGE SUBCUT SCH ×3 (05:54→22:35)
[2017-12-03] MEDS: VANCOMYCIN HCL 1,000 MG in DEXTROSE 5%-WATER 250 ML IV SCH ×3 (06:04→22:34)
[2017-12-03 06:27] LABS: PROTHROMBIN TIME 20.8 SEC (11.4-15.4)
[2017-12-03 06:34] LABS: APPEARANCE,URINE CLEAR; BILIRUBIN,URINE NEGATIVE (NEGATIVE); COLOR,URINE YELLOW; GLUCOSE, URINE NEGATIVE (NEGATIVE); KETONES,URINE NEGATIVE (NEGATIVE); LEUKOCYTE ESTERASE,URINE NEGATIVE (NEGATIVE); NITRITE,URINE NEGATIVE (NEGATIVE); PROTEIN,URINE NEGATIVE (NEGATIVE); URINE SPECIFIC GRAVITY 1.011; UROBILINOGEN,URINE NEGATIVE mg/dL (<2.0)
[2017-12-03] MEDS: METFORMIN HCL 500 MG TABLET PO SCH ×2 (08:09→17:07)
--- NOTE | 2017-12-03 09:37 | PDOC PROGRESS REPORT ---
Subjective Progress Note for:: 12/03/17 Subjective:: Leg less tender less swollen erythema regressing.No new complaints. Reason For Visit: CELLULITIS DIABETES Physical Exam Vital Signs: Temp Pulse Resp BP Pulse Ox 97.7 F 58 L 16 112/61 96 12/03/17 08:13 12/03/17 08:13 12/03/17 08:13 12/03/17 08:13 12/03/17 08:13 Intake & Output 12/02/17 12/03/17 12/04/17 06:59 06:59 06:59 Intake Total 1389 250 Output Total 1325 Balance 64 250 Weight 148.4 kg 151.1 kg General appearance: PRESENT: no acute distress, obese, well-developed, well- nourished Neck exam: ABSENT: carotid bruit, JVD, lymphadenopathy, thyromegaly Respiratory exam: PRESENT: clear to auscultation aniket. ABSENT: rales, rhonchi, wheezes Cardiovascular exam: PRESENT: RRR. ABSENT: diastolic murmur, rubs, systolic murmur GI/Abdominal exam: PRESENT: normal bowel sounds, soft. ABSENT: distended, guarding, mass, organolmegaly, rebound, tenderness Extremities exam: PRESENT: tenderness - Left lower extremity Skin exam: PRESENT: skin tears - Improved erythema, warm Results Laboratory Results: 12/02/17 05:33 12/02/17 05:33 12/02/17 12/03/17 11:00 05:40 Urine Color YELLOW Urine Appearance CLEAR Urine pH 5.0 Ur Specific [place] 1.011 Urine Protein NEGATIVE Urine Glucose (UA) NEGATIVE Urine Ketones NEGATIVE Urine Blood NEGATIVE Urine Nitrite NEGATIVE Ur Leukocyte Esterase NEGATIVE Urine WBC (Auto) 0 Urine RBC (Auto) 0 Stool Occult Blood NEGATIVE Assessment & Plan - Diagnosis (1) Left leg cellulitis Is this a current diagnosis for this admission?: Yes Plan: Continue Vanco Zosyn today transitioned to p.o. clindamycin in a.m. anticipate discharge when Roads are clear from [place].. (2) Sepsis Qualifiers: Sepsis type: sepsis due to unspecified organism Qualified Code(s): A41.9 - Sepsis, unspecified organism Is this a current diagnosis for this admission?: Yes Plan: Resolved (3) Diabetes Qualifiers: Diabetes mellitus type: type 2 Diabetes mellitus correction insulin use: without watermaster use Diabetes mellitus complication status: without complication Qualified Code(s): E11.9 - Type 2 diabetes mellitus without complications Is this a current diagnosis for this admission?: Yes Plan: Patient on metformin at home hemoglobin A1c 6.4 indicating good glycemic control. Continue sliding scale for the present. (4) Chronic anticoagulation Is this a current diagnosis for this admission?: Yes Plan: INR 1.70 continue Coumadin at 10 mg daily INR in a.m. (5) Morbid obesity with BMI of 40.0-44.9, adult Is this a current diagnosis for this admission?: Yes Plan: Weight reduction stressed.
[2017-12-03] MEDS: DOCUSATE SODIUM 100 MG CAPSULE PO SCH ×2 (10:05→17:12)
[2017-12-03] MEDS: WARFARIN SODIUM 5 MG TABLET PO SCH (22:35)
[2017-12-03] MEDS: LISINOPRIL 5 MG TABLET PO SCH (22:35)
[2017-12-04] MEDS: PIPERACILLIN SODIUM/TAZOBACTAM 2.25 GM in NORMAL SALINE 50 ML IV SCH (02:38)
[2017-12-04] MEDS: HEPARIN SOD (PORCINE) 5,000 UNIT/ML 1 ML SYRINGE SUBCUT SCH (05:38)
[2017-12-04] MEDS: VANCOMYCIN HCL 1,000 MG in DEXTROSE 5%-WATER 250 ML IV SCH (05:38)
[2017-12-04 06:35] LABS: INTERNATIONAL RATION (INR) 1.85; PROTHROMBIN TIME 22.2 SEC (11.4-15.4)
[2017-12-04] MEDS: METFORMIN HCL 500 MG TABLET PO SCH (07:41)
[2017-12-04] MEDS: DOCUSATE SODIUM 100 MG CAPSULE PO SCH (09:15)
[2017-12-04] MEDS ORDERED: CLINDAMYCIN HCL 150 MG CAPSULE PO SCH (12:00)
[2017-12-04 12:51] VITALS: BP 112/61
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
== END 2017-12-04 13:39 | disposition home or self-care (01) | DRG 872 ==
LOC: ER 16:02 → EH 19:39 → 4S 21:55
PROVIDERS: ADMIT Internal Medicine; ATTEND Internal Medicine
DX: A41.9 Sepsis, unspecified organism (principal); L03.116 Cellulitis of left lower limb; Z68.41 Body mass index [BMI] 40.0-44.9, adult; L03.114 Cellulitis of left upper limb; I10 Essential (primary) hypertension; E66.01 Morbid (severe) obesity due to excess calories; E11.51 Type 2 diabetes mellitus with diabetic peripheral angiopathy without gangrene; S81.832A Puncture wound without foreign body, left lower leg, initial encounter; Z86.711 Personal history of pulmonary embolism; I87.2 Venous insufficiency (chronic) (peripheral); R79.1 Abnormal coagulation profile; Z79.01 Long term (current) use of anticoagulants; W26.8XXA Contact with other sharp object(s), not elsewhere classified, initial encounter
CPT/HCPCS: 36415; 80048; 80053; 80202; 81001; 82272; 82962; 83605; 85025; 85610; 85730; 87040; 99284; J1644; J2543; J3370; J3490; J7060

== ENCOUNTER 2017-12-25 10:31 | Emergency (ER) | payer MEDICARE ==
[2017-12-25] MEDS ORDERED: LIDOCAINE 1% INJ-PF (10 MG/ML) 30 ML SDV INJ ONE (10:47)
[2017-12-25 11:09] LABS: INTERNATIONAL RATION (INR) 2.11; PROTHROMBIN TIME 24.7 SEC (11.4-15.4)
--- NOTE | 2017-12-25 11:40 | RADIOLOGY REPORT (SQ) ---
EXAM DESCRIPTION: TIBIA FIBULA LEFT COMPLETED DATE/TIME: 12/25/2017 11:19 am REASON FOR STUDY: Laceration with weed Sanjiv COMPARISON: None. NUMBER OF VIEWS: Two views. TECHNIQUE: Two radiographic images acquired of the left tibia and fibula to include the knee and ank le in at least one projection. LIMITATIONS: None. FINDINGS: MINERALIZATION: Normal. BONES: No acute fracture or dislocation. No worrisome bone lesions. Main ankle joints are approxima odalys. A small Achilles tendon enthesophyte. No erosions. SOFT TISSUES: Soft tissue defect overlying the medial distal tibia with an overlying bandage. No rad iopaque foreign body. No subcutaneous gas. Scattered vascular calcifications. OTHER: No other significant finding. IMPRESSION: 1. No acute fracture or dislocation. 2. Small soft tissue defect overlying the distal medial tibia. No radiopaque foreign body. TECHNICAL DOCUMENTATION: JOB ID: [id number] charity: [employer]- All Rights Reserved Reading location - IP/workstation name: [email or web address]
[2017-12-25 11:50] VITALS: BP 140/93
--- NOTE | 2017-12-25 12:13 | ER Document Report ---
ED Extremity Problem, Lower - General Chief Complaint: Laceration Stated Complaint: LEG INJURY Time Seen by Provider: 12/25/17 10:45 Notes: Patient was using a weed Sanjiv and accidentally hit the distal inner aspect of his left lower leg causing a rather long laceration. It appears to be through the subcutaneous fat level. No other injuries. Patient was just an inpatient at this hospital for an infected lower left leg, on the outer aspect where he had a couple of infected lesions. He was treated as an inpatient with IV antibiotics before being discharged home on clindamycin which she has now finished. The area of current injury, does not appear to be in the same area of the leg as where he had the 2 infected spots. Additionally, patient is on Coumadin because he has had pulmonary emboli in the past. And discharged a week or so ago TRAVEL OUTSIDE OF THE [place] IN LAST 30 DAYS: No - Related Data Allergies/Adverse Reactions: No Known Allergies Allergy (Verified 12/25/17 10:32) Past Medical History - Social History Smoking Status: Former Smoker Family History: Reviewed & Not Pertinent Patient has suicidal ideation: No Patient has homicidal ideation: No - Past Medical History Cardiac Medical History: Reports: Hx DVT, Hx Hypertension Endocrine Medical History: Reports: Hx Diabetes Mellitus Type 2 Musculoskeletal Medical History: Denies Hx Arthritis - Immunizations Hx Diphtheria, Pertussis, Tetanus Vaccination: Yes Hx Pneumococcal Vaccination: 11/01/16 Review of Systems - Review of Systems Notes: REVIEW OF SYSTEMS: CONSTITUTIONAL : Denies fever. EENT: Denies eye, ear, nose or mouth or throat pain or other symptoms. CARDIOVASCULAR: Denies chest pain. RESPIRATORY: Denies cough, chest congestion, or shortness of breath. GASTROINTESTINAL: Denies abdominal pain or nausea, vomiting, or diarrhea. GENITOURINARY: Denies difficulty or painful urinating, urinary frequency, blood in urine. MUSCULOSKELETAL: Denies back or neck pain. Denies joint pain or swelling. SKIN: See HPI. NEUROLOGICAL: Denies LOC or altered mental status. Denies headache. Denies sensory loss or motor deficits. ALL OTHER SYSTEMS REVIEWED AND NEGATIVE. Physical Exam - Vital signs Vitals: Temp Pulse Resp BP Pulse Ox 98.1 F 102 H 16 140/93 H 95 12/25/17 11:49 12/25/17 11:49 12/25/17 11:49 12/25/17 11:49 12/25/17 11:49 - Notes Notes: PHYSICAL EXAMINATION: GENERAL: Well-appearing, in no acute distress. HEAD: Atraumatic, normocephalic. NECK: Normal range of motion, supple. LUNGS: Breath sounds clear and equal bilaterally. HEART: Regular rate and rhythm without murmurs. ABDOMEN: Soft, nontender. No guarding or rebound. No masses. BACK: No tenderness throughout entire back. EXTREMITIES: Normal range of motion without pain. Healed lesions on the outer aspect of the left ankle. These are the infected areas that he was admitted to the hospital to treat. Patient has a 9 cm laceration of the inner aspect of the left distal lower leg this is. It extends deeper into the subcutaneous tissue and the more distal posterior aspect, but none of it appears to involve muscle. No dirt or debris noted. NEUROLOGICAL: Normal speech, difficult to ambulate because of pain. Normal sensory, motor, and reflex exams. Awake, alert, and oriented x3. Cranial nerves normal. PSYCH: Normal mood, normal affect. SKIN: Warm, dry, no rashes. Course - Vital Signs Vital signs: Temp Pulse Resp BP Pulse Ox 98.1 F 102 H 16 140/93 H 95 12/25/17 11:49 12/25/17 11:49 12/25/17 11:49 12/25/17 11:49 12/25/17 11:49 - Laboratory Laboratory results interpreted by me: 12/25/17 10:55 PT 24.7 H Procedures - Laceration/Wound Repair Left Lower Leg Time completed: 11:30 Wound length (cm): 9 Wound's Depth, Shape: Linear. No: Into muscle - Only into subcutaneous fat tissue. Laceration pre-procedure: Sterile PPE donned, Chloraprep applied Anesthetic type: 1% Lidocaine Volume Anesthetic (mLs): 8 Wound explored: Clean, No foreign body removed Irrigated w/ Saline (mLs): 2,000 Wound Repaired With: Sutures Suture Size/Type: 3:0, Ethilon Number of Sutures: 10 Layer Closure?: No Post-procedure NV exam normal: Yes Complications: No Adult Front & Back picture: 1 - 9 cm curvilinear laceration of the inner aspect distal left lower leg. Irrigated with 2 L of saline. Wound closed with 3-0 and 4-0 Ethilon x10. Discharge - Discharge Clinical Impression: Laceration of left lower leg Condition: Stable Disposition: HOME, SELF-CARE Additional Instructions: LACERATION CARE: Your laceration has been sutured to keep the skin edges aligned during healing. The time of suture removal depends on the nature and location of your cut. Please follow the care instructions the doctor has outlined for you and return for further care, according to the schedule you've been given. Keep the wound and dressing clean. Unless you were told otherwise, you may shower daily, blotting the wound dry with a clean, unused towel. At other times, If the dressing gets wet or blood soaked, remove it and blot the wound dry, then reapply a new dressing. Unless you were instructed otherwise, dressings should be changed at least daily. If any signs of infection occur (swelling, redness, drainage, increasing tenderness, red streaks, tender lumps in the armpit or groin above the laceration, or fever), see the doctor immediately. Elevate your lower leg as much as possible on a pillow for the next couple of days and then intermittently after that. SOAP CLEANSING: Gently wash the wound daily using a mild soap (like Ivory, Phisoderm, Neutrogena). Use warm water, rubbing gently until all debris, ooze, and crusting have been washed from the wound. Allow to dry briefly (about 10 minutes) after cleaning. Repeat this cleansing at least three times a day for the first two days and then once or twice a day. ANTIBIOTIC OINTMENT PROTECTION: Your wounds are such that dressing them is not practical or optional. After cleansing, you should apply a thin coating of antibiotic ointment ( Bacitracin, not Neosporin) to the wounds at least three times daily. This lessens infection risk, and may decrease the amount of scarring. Use a q-tip or dull butter knife, not your finger, to apply this ointment. Any debris or ooze which builds up in the ointment should be gently rubbed off with a sterile gauze pad. Harder crusting may need to be gently scrubbed off with a clean wash cloth with soap and warm water, perhaps applying a warm, wet wash cloth to the wound for ten minutes first. Development of redness, severe itching, or blistering may mean allergy to the ointment. See the doctor. FOLLOW-UP CARE: Your sutures should be removed in 10 days. To facilitate a timely removal of your sutures, you may return to the Emergency Department at [facility]. You do not need to call for an appointment, but the best time to come in for suture removal is early in the morning. If you have been referred to another physician for follow-up care, call that physicians office for an appointment as you were instructed. If you experience a significant change in your laceration, or if you are concerned there may be an infection (swelling, redness, drainage, increasing tenderness, red streaks, tender lumps in the armpit or groin above the laceration, or fever) , return to the Emergency Department immediately re-evaluation. Referrals: REINALDO HUGHES NP [Primary Care Provider] - Follow up as needed
== END 2017-12-25 12:28 | disposition home or self-care (01) ==
LOC: ER 10:31
PROC: 0HQLXZZ Repair Left Lower Leg Skin, External Approach (ICD-10-PCS; principal; 2017-12-25)
DX: S81.812A Laceration without foreign body, left lower leg, initial encounter (principal); W29.8XXA Contact with other powered hand tools and household machinery, initial encounter; Z87.891 Personal history of nicotine dependence; Z79.01 Long term (current) use of anticoagulants; I10 Essential (primary) hypertension; E11.9 Type 2 diabetes mellitus without complications
CPT/HCPCS: 99283; 36415; 85610; 73590; 12004; J3490